=== PATIENT | female | born 1990 | race Caucasian/White ===

== ENCOUNTER 2017-01-14 19:24 | Emergency (ER) | payer OTHER ==
[~2017-01-14] VITALS: Ht 165.1 cm; Wt 57.4 kg
[2017-01-14] MEDS ORDERED: FLUORESCEIN OPHTHALMIC 1 MG STRIP ONE (19:48)
[2017-01-14] MEDS ORDERED: PROPARACAINE OPHTH 0.5%, 15ML ONE (19:49)
[2017-01-14] MEDS ORDERED: PROPARACAINE OPHTH 0.5%, 15ML EACHEYE ONE (20:00)
[2017-01-14] MEDS ORDERED: FLUORESCEIN OPHTHALMIC 1 MG STRIP EACHEYE ONE (20:00)
[2017-01-14 22:34] VITALS: BP 131/74
== END 2017-01-14 22:35 | disposition home or self-care (01) ==
LOC: ED 22:20
DX: H10.211 Acute toxic conjunctivitis, right eye (principal); Z77.098 Contact with and (suspected) exposure to other hazardous, chiefly nonmedicinal, chemicals; Z88.0 Allergy status to penicillin
CPT/HCPCS: 99283